=== PATIENT | female | born 2000 | race African-American/Black ===

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

== ENCOUNTER 2022-01-19 19:39 | Emergency (ER) | payer OTHER | END 2022-01-20 01:00 | disposition left against medical advice (07) | LOC: ED 19:39 | DX: Z53.21 Procedure and treatment not carried out due to patient leaving prior to being seen by health care provider (principal) ==

== ENCOUNTER 2023-03-09 16:31 | Emergency (ER) | payer OTHER ==
[~2023-03-09] VITALS: Ht 160 cm; Wt 86.2 kg
== END 2023-03-09 20:08 | disposition home or self-care (01) ==
LOC: ED 16:31
DX: R51.9 Headache, unspecified (principal); J45.909 Unspecified asthma, uncomplicated; D64.9 Anemia, unspecified; Z91.013 Allergy to seafood

== ENCOUNTER 2023-09-02 00:10 | Emergency (ER) | payer OTHER ==
[~2023-09-02] VITALS: Ht 160 cm; Wt 82.6 kg
[2023-09-02] MEDS ORDERED: Ondansetron Hydrochloride 4 MG TAB SL ONE (00:40)
[2023-09-02] MEDS ORDERED: ACETAMINOPHEN 325 MG TAB PO ONE (00:40)
== END 2023-09-02 01:45 | disposition home or self-care (01) ==
LOC: ED 00:10
DX: O26.891 Other specified pregnancy related conditions, first trimester (principal); O21.9 Vomiting of pregnancy, unspecified; B34.9 Viral infection, unspecified; J45.909 Unspecified asthma, uncomplicated; D64.9 Anemia, unspecified; Z91.013 Allergy to seafood; Z3A.08 8 weeks gestation of pregnancy

== ENCOUNTER 2025-04-05 13:44 | Emergency (ER) | payer OTHER ==
[~2025-04-05] VITALS: Wt 81.6 kg
[~2025-04-05 13:44] MED LIST changes: +Ondansetron4 MG PO
== END 2025-04-05 16:02 | disposition home or self-care (01) ==
LOC: ED 13:44
DX: S93.401A Sprain of unspecified ligament of right ankle, initial encounter (principal); J45.909 Unspecified asthma, uncomplicated; Z91.013 Allergy to seafood; Z87.440 Personal history of urinary (tract) infections; X50.1XXA Overexertion from prolonged static or awkward postures, initial encounter; Y93.89 Activity, other specified; Y92.89 Other specified places as the place of occurrence of the external cause; Y99.8 Other external cause status